=== PATIENT | female | born 1955 | race Caucasian/White ===

== ENCOUNTER 2018-04-26 14:55 | Inpatient (IN) | payer OTHER ==
[~2018-04-26] VITALS: Ht 167.6 cm; Wt 69.4 kg
[2018-04-26 15:00] VITALS: BP_SYST 101
--- NOTE | 2018-04-26 15:05 | NUR ---
Patient triaged and placed in waiting room. VSS and patient appears in no acute distress at this time. Accompanied by FAMILY, awaiting available bed, and MD notified of need for MSE.
--- NOTE | 2018-04-26 15:20 | NUR ---
DMV Report filed and faxed to [phone]. EXPLAINED TO DAUGHTER ABOUT REPORTING.
--- NOTE | 2018-04-26 15:54 | NUR ---
Placed in room 1. Placed on equipment monitor phototypesetting, blood pressure machine and pulse oximeter. To gown for exam. Side rails up. Report given to Kamille AMRION.
--- NOTE | 2018-04-26 16:05 | NUR ---
Pt AAOx4, moroccan speaking only, presents to ED c/o generalized weakness, 8/10 lower abdominal pain radiating to back x 3 days with 1 episode of vomiting yesterday. Pt also states she was on vacation recently and had several syncopal episodes. Skin pink dry and warm, breathing even and unlabored. No other injuries/complaints per pt/noted. Will continue to monitor.
--- NOTE | 2018-04-26 16:28 | NUR ---
ER Dr. Steven at bedside examining patient.
--- NOTE | 2018-04-26 16:34 | NUR ---
Pt ambulated to bathroom to provide urine sample with steady gait
--- NOTE | 2018-04-26 16:41 | NUR ---
PT TO RADIOLOGY AMBULATORY
[2018-04-26 16:45] LABS: BASOPHILS % (AUTO) 0.4 % (0.0-2.0); EOSINOPHILS % (AUTO) 0.5 % (0.0-4.0); HEMATOCRIT 32.5 % (36-48); LYMPHOCYTES # (AUTO) 0.8 K/uL (1.0-5.5); LYMPHOCYTES % (AUTO) 13.6 % (20.5-51.5); MEAN CORPUSCULAR HEMOGLOBIN 33 pg (27-31); MEAN CORPUSCULAR HGB CONC 34 % (32-36); MEAN CORPUSCULAR VOLUME 97 fL (79.0-98.0); MONOCYTES # (AUTO) 0.6 K/uL (0.0-1.0); MONOCYTES % (AUTO) 9.3 % (1.7-9.3); NEUTROPHILS # (AUTO) 4.5 K/uL (1.8-7.7); NEUTROPHILS % (AUTO) 76.2 % (40.0-70.0); PLATELET COUNT (AUTO) 206 K/uL (130-430); RED BLOOD CELL COUNT(AUTO) 3.36 MIL/uL (4.2-6.2); RED CELL DISTRIBUTION WIDTH 12.6 % (9.0-15.0); WHITE BLOOD COUNT (AUTO) 5.9 K/uL (4.8-10.8)
[2018-04-26 16:47] LABS: PROTHROMBIN TIME 10.4 SECS (9.5-12.5)
[2018-04-26 16:56] LABS: BILIRUBIN,URINE NEGATIVE (NEGATIVE); CLARITY/URINE SL CLOUDY (CLEAR); COLOR,URINE YELLOW (YELLOW); GLUCOSE,URINE 3+ (NEGATIVE); KETONES,URINE 1+ (NEGATIVE); LEUKOCYTE ESTERASE ,URINE 2+ (NEGATIVE); NITRITE, URINE NEGATIVE (NEGATIVE); PH,URINE 5.5 (5.0-8.0); PROTEIN URINE 1+ (NEGATIVE); UROBILINOGEN,URINE 0.2 (0.2-1.0)
[2018-04-26 16:57] LABS: BLOOD, URINE TRACE (NEGATIVE)
[2018-04-26 16:59] LABS: BACTERIA,URINE MODERATE /HPF (None Seen); WBC,URINE >100 /HPF (0-3)
[2018-04-26 17:00] LABS: MUCUS,URINE 2+ /LPF (None Seen)
[2018-04-26 17:04] LABS: BARBITURATE, URINE NEGATIVE (NEG <=200); BENZODIAZEPINE, URINE NEGATIVE (NEG <=150); CANNABINOID, URINE NEGATIVE (NEG <=50); COCAINE, URINE NEGATIVE (NEG <=150); METHAMPHETAMINES SCREEN,URINE NEGATIVE (NEG <=500); OPIATE, URINE NEGATIVE (NEG <=100); PHENCYCLIDINE SCREEN,URINE NEGATIVE (NEG <=25); UR TRICYCLIC ANTIDEPRESSANTS NEGATIVE (NEG <=300); URINE AMPHETAMINE NEGATIVE (NEG <=500); URINE METHADONE NEGATIVE (NEG <=200); URINE OXYCODONE SCREEN NEGATIVE (NEG <=100); URINE PROPOXYPHENE SCREEN NEGATIVE (NEG <=300)
[2018-04-26 17:08] LABS: ANION GAP 9 (5-15); ASPARTATE AMINOTRANSFERASE 13 U/L (10-37); CALCIUM 8.4 mg/dL (8.4-11.0); CHLORIDE 96 mmol/L (98-107); CREATININE 1.48 mg/dL (0.55-1.30); GFR AFRICAN AMERICAN 46 mL/min (>90); GLUCOSE 329 mg/dL (70-99); POTASSIUM 3.5 mmol/L (3.5-5.1); SODIUM SERUM 131 mmol/L (136-145); TOTAL BILIRUBIN 0.4 mg/dL (0.0-1.0); UREA NITROGEN, BLOOD 36 mg/dL (8-21)
[2018-04-26 17:09] LABS: ALANINE AMINOTRANSFERASE 20 U/L (12-78); ALBUMIN 2.8 g/dL (3.4-4.8); ALCOHOL, BLOOD < 3 mg/dL (<10); FREE T4 (FREE THYROXINE) 0.9 ng/dL (0.6-1.6)
[2018-04-26] MEDS ORDERED: cefTRIAXone 1 GM in D5W 50 ML IV ONE (18:15)
[2018-04-26] MEDS ORDERED: MORPHINE 4 MG/ML INJ. SYRINGE IVP ONE (18:15)
[2018-04-26] MEDS ORDERED: DIPHENHYDRAMINE INJ 50 MG/ML VIAL IVP ONE (18:15)
--- NOTE | 2018-04-26 18:25 | NUR ---
BP 88/60. Dr. Steven notified. Morphine and Benadryl held.
[2018-04-26] MEDS ORDERED: cefTRIAXone 1 GM IVPB PREMIX 50 ML IV ONE (18:30)
--- NOTE | 2018-04-26 18:34 | NUR ---
Pt moved to bed 06
--- NOTE | 2018-04-26 18:54 | NUR ---
Pt c/o 10/[address] Steven assessing pt at bedside. Orders to be received.
[2018-04-26] MEDS ORDERED: HYDROcodone/ACETAMIN 5-325 MG TAB (NORCO/ VICODIN) PO ONE (19:00)
--- NOTE | 2018-04-26 19:09 | NUR ---
ADMIT NOTE Received pt from ER to the floor with a diagnosis of syncope. Admission process initiated. patient oriented to pain management, safety and call light-teach back done.
--- NOTE | 2018-04-26 19:16 | NUR ---
Patient will be admitted to care of [facility]. Admitted to Telemetry unit. Will go to room 132C. Summary report printed. Report will be given at bedside.
[2018-04-26 19:18] VITALS: BP_SYST 105
--- NOTE | 2018-04-26 19:20 | NUR ---
ROUNDS PATIENT IN BED, AWAKE, ALERT, ORIENTED, NOT IN DISTRESS, VITALS STABLE. DENIES ANY PAIN AT THIS TIME. ADMISSION ASSESSMENT DONE AND DOCUMENTED. SEE FLOWSHEET. ORIENTED TO HER ROOM, PHONE, TV AND CALL LIGHT. PLAN OF CARE DISCUSSED AND PATIENT AND FAMILY VERBALIZED UNDERSTANDING. NEEDS ATTENDED TO. SAFETY AND FALL PRECAUTION MEASURES IN PLACED. BED IN LOW AND LOCKED POSITION. CALL LIGHT PLACED WITHIN REACH.
[2018-04-26] MEDS ORDERED: LORazepam 2 MG/ML VIAL IVP PRN (19:45)
[2018-04-26] MEDS ORDERED: ONDANSETRON HCL 4 MG/2 ML VIAL IVP PRN (19:45)
[2018-04-26] MEDS ORDERED: AMLO5TAB4 PO (21:29)
[2018-04-26] MEDS ORDERED: GLU850 PO (21:29)
[2018-04-26] MEDS ORDERED: BENA40TA65 PO (21:29)
[2018-04-26] MEDS ORDERED: ASPI-1155 PO (21:29)
[2018-04-26] MEDS ORDERED: SIMV20TA2 PO (21:29)
[2018-04-26] MEDS ORDERED: ALOG25TA2 PO (21:29)
[2018-04-26] MEDS ORDERED: GARL200T PO (21:29)
[2018-04-26] MEDS ORDERED: OXYB10TA4 PO (21:29)
[2018-04-26] MEDS ORDERED: CHOL500037 PO (21:29)
--- NOTE | 2018-04-26 22:14 | NUR ---
PATIENT RESTING: Patient resting quietly. No acute distress noted. Vital signs within normal range.
--- NOTE | 2018-04-26 22:40 | NUR ---
CONSULT REASON FOR CONSULT: SYNCOPE PERSON I SPOKE WITH: HUBER CONSULTING PHYSICIAN: Kitty LOGAN (DR. KIMBALL PET SITTER) BONDING MACHINE OPERATOR PHONE NUMBER: [phone] ORDERING PHYSICIAN: Latia LOGAN
--- NOTE | 2018-04-26 22:43 | NUR ---
CONSULT REASON FOR CONSULT: SYNCOPE PERSON I SPOKE WITH: MARTA CONSULTING PHYSICIAN: DR. EASLEY BRICKMASON APPRENTICE PHONE NUMBER: [phone] ORDERING PHYSICIAN: Latia LOGAN
[2018-04-26] MEDS: NORMAL SALINE 5 ML DISP.SYRIN IVF SCH (23:11)
[2018-04-27 00:05] VITALS: BP_SYST 81
--- NOTE | 2018-04-27 00:12 | NUR ---
ROUNDS PATIENT ASLEEP, NO SOB NOR PAIN AND DISCOMFORT NOTED, VITALS STABLE. WILL CONTINUE TO MONITOR.
[2018-04-27 01:58] VITALS: BP_SYST 128
[2018-04-27] MEDS: ACETAMINOPHEN 325 MG TABLET PO PRN (03:36)
--- NOTE | 2018-04-27 03:36 | NUR ---
PAIN PATIENT C/O MILD PAIN TO LEFT SHOULDERS, TYLENOL 650 MG PO GIVEN ORDERED PRN . WILL CONTINUE TO MONITOR.
[2018-04-27 06:35] LABS: CALCIUM 8.1 mg/dL (8.4-11.0); POTASSIUM 3.2 mmol/L (3.5-5.1)
[2018-04-27 06:49] LABS: PHOSPHORUS 2.2 mg/dL (2.7-4.5); THYROID STIMULATING HORMONE 1.19 uIu/mL (0.34-4.82)
[2018-04-27 06:55] LABS: BASOPHILS % (AUTO) 0.4 % (0.0-2.0); EOSINOPHILS % (AUTO) 0.3 % (0.0-4.0); HEMATOCRIT 29.5 % (36-48); HEMOGLOBIN 10.1 g/dL (12.0-16.0); LYMPHOCYTES # (AUTO) 0.4 K/uL (1.0-5.5); LYMPHOCYTES % (AUTO) 6.7 % (20.5-51.5); MEAN CORPUSCULAR HEMOGLOBIN 33 pg (27-31); MEAN CORPUSCULAR HGB CONC 34 % (32-36); MEAN CORPUSCULAR VOLUME 95 fL (79.0-98.0); MONOCYTES # (AUTO) 0.7 K/uL (0.0-1.0); MONOCYTES % (AUTO) 10.3 % (1.7-9.3); NEUTROPHILS # (AUTO) 5.2 K/uL (1.8-7.7); NEUTROPHILS % (AUTO) 82.3 % (40.0-70.0); PLATELET COUNT (AUTO) 187 K/uL (130-430); RED CELL DISTRIBUTION WIDTH 12.6 % (9.0-15.0); WHITE BLOOD COUNT (AUTO) 6.3 K/uL (4.8-10.8)
--- NOTE | 2018-04-27 07:30 | NUR ---
INITIAL NOTE RECEIVED PT IN BED, NO S/S OF DISTRESS OR SOB NOTED, PT HAS NO C/O PAIN AT THIS TIME, PT IN STABLE, PT AAOX4, VERBAL. IV CATHETER PATENT, NO SIGNS OF INFECTION OR INFILTRATION NOTED. SEIZURE PADS IN PLACE FOR SAFETY DUE TO DIAGNOSIS. PT HAS NO FACIAL DROOP NOTED, BILATERAL FIRE MARSHAL REFINERY STRONG 5/5, NO DEFICITS NOTED. BED AT LOWEST POSITION, CALL LIGHT WITHIN REACH, WILL CONTINUE TO MONITOR PT FOR ANY CHANGES, SAFETY PRECAUTIONS IN PLACE.
[2018-04-27 08:16] VITALS: BP_SYST 97
[2018-04-27] MEDS: HYDROcodone/ACETAMIN 5-325 MG TAB (NORCO/ VICODIN) PO PRN ×3 (09:57→20:21)
--- NOTE | 2018-04-27 10:05 | NUR ---
ROUNDS PT IN BED, NO S/S OF DISTRESS OR SOB NOTED, PT HAS NO C/O PAIN AT THIS TIME, PT IN STABLE CONDITION, WILL CONTINUE TO MONITOR PT FOR ANY CHANGES. Addendum: 04/27/18 at 1133 by Taylor Lockwood RN PT DID COMPLAIN OF PAIN, ADMINISTERED PRN NORCO PRESCRIBED, WILL CONTINUE TO MONITOR
--- NOTE | 2018-04-27 10:35 | NUR ---
PHYSICAL THERAPY PT AMBULATED WITH PHYSICAL THERAPY INSIDE THE ROOM ,PT TOLERATED.
--- NOTE | 2018-04-27 10:45 | NUR ---
MD ROUNDS DR SANGEETA GEORGE, AWARE OF PATIENT'S CONDITION.
--- NOTE | 2018-04-27 12:20 | NUR ---
ROUNDS/EEG PT IN BED, NO S/S OF DISTRESS OR SOB NOTED, PT HAS NO C/O PAIN AT THIS TIME, PT IN STABLE CONDITION, WILL CONTINUE TO MONITOR PT FOR ANY CHANGES. PT HAVING AN EGG DONE AT THIS TIME.
--- NOTE | 2018-04-27 12:53 | NUR ---
P.T. NOTES P.T. MARQUITA COMPLETED; NURSING TO [facility]BU AD JOSE Addendum: 04/27/18 at 1254 by Rhoda Branham PT Amended: Links added.
[2018-04-27] MEDS: NORMAL SALINE 5 ML DISP.SYRIN IVF SCH ×2 (13:20→23:07)
[2018-04-27 13:27] VITALS: BP_SYST 102
--- NOTE | 2018-04-27 13:33 | NUR ---
ROUNDS DR REHANA GEORGE, AWARE OF PATIENTS CONDITION.
--- NOTE | 2018-04-27 14:10 | NUR ---
ROUNDS/EEG PT IN BED, NO S/S OF DISTRESS OR SOB NOTED, PT HAS NO C/O PAIN AT THIS TIME, PT IN STABLE CONDITION, WILL CONTINUE TO MONITOR PT FOR ANY CHANGES.
[2018-04-27] MEDS ORDERED: ASPIRIN 81 MG TAB.CHEW PO ONE (14:15)
[2018-04-27] MEDS ORDERED: OXYBUTYNIN CHLORIDE 5 MG TABLET PO ONE (14:15)
--- NOTE | 2018-04-27 14:30 | NUR ---
MD ROUNDS DR HAN ROUNDING, AWARE OF PATIENT'S CONDITION, NEW ORDERS GIVEN.
[2018-04-27] MEDS ORDERED: INSULIN REGULAR, HUMAN 100 UNITS/ML, 10 ML VIAL SUBCUT ONE (14:45)
--- NOTE | 2018-04-27 14:46 | NUR ---
BLOOD GLUCOSE PATIENT'S BLOOD GLUCOSE WAS 405 AND WHEN RECHECKED 415, ROUNDING AND MADE AWARE AND GAVE NEW ORDERS FOR 12 UNITS OF REGULAR INSULIN SQ TIMES ONE NOW AND TO CHECK HER SUGAR AT 1700. PT ASYMPTOMATIC, NO S/S OF HYPERGLYCEMIA NOTED.
[2018-04-27] MEDS: LEVOFLOXACIN 500 MG/D5W 100 ML IV SCH (14:50)
--- NOTE | 2018-04-27 15:01 | NUR ---
CONSULT ID SEPSIS DR CINTRON [id number] S/W MARTA BELLE
--- NOTE | 2018-04-27 15:24 | NUR ---
IV RE-INSERTION: IV on right ac occluded, removed iv, catheter intact. Restarted on right foreram, 22 gauge. Successful after one attempt. Will observe for any signs of infiltration. Aseptic technique used.
[2018-04-27 16:20] VITALS: BP_SYST 110
[2018-04-27] MEDS: INSULIN REGULAR, HUMAN 100 UNITS/ML, 10 ML VIAL (novoLIN R) SUBCUT PRN (17:34)
--- NOTE | 2018-04-27 18:17 | NUR ---
CLOSING NOTE PT IN BED, NO S/S OF DISTRESS OR SOB NOTED, PT HAS NO C/O PAIN AT THIS TIME, PT IN STABLE, PT AAOX4, VERBAL. IV CATHETER PATENT, NO SIGNS OF INFECTION OR INFILTRATION NOTED. PT HAS NO FACIAL DROOP NOTED, BILATERAL SKIDWAY MAN STRONG 5/5, NO DEFICITS NOTED. NO HEADACHE OR DIZZINESS. BED AT LOWEST POSITION, CALL LIGHT WITHIN REACH, WILL ENDORSE CARE OF PT TO INCOMING NURSE, SAFETY PRECAUTIONS IN PLACE.
--- NOTE | 2018-04-27 19:40 | NUR ---
ROUNDS PATIENT RESTING COMFORTABLY IN BED, NOT IN DISTRESS, VITALS STABLE. DENIES ANY PAIN AND DISCOMFORT AT THIS TIME. ASSESSMENT DONE AND DOCUMENTED. SEE FLOWSHEET. NEEDS ATTENDED TO. SAFETY AND FALL PRECAUTION MEASURES IN PLACED. BED IN LOW AND LOCKED POSITION. CALL LIGHT PLACED WITHIN REACH.
[2018-04-27 20:00] VITALS: BP_SYST 98
[2018-04-27] MEDS: SIMVASTATIN 20 MG TABLET PO SCH (20:21)
[2018-04-27] MEDS: OXYBUTYNIN CHLORIDE 5 MG TABLET PO SCH (20:22)
--- NOTE | 2018-04-27 21:13 | NUR ---
MEDICATIONS DUE MEDICATIONS GIVEN SCHEDULED, TOLERATED WELL. WILL CONTINUE TO MONITOR.
--- NOTE | 2018-04-28 00:23 | NUR ---
PATIENT RESTING: Patient resting quietly. No acute distress noted. Vital signs within normal range.
--- NOTE | 2018-04-28 02:12 | NUR ---
ROUNDS PATIENT ASLEEP, NOT IN DISTRESS, VITALS STABLE. WILL CONTINUE TO MONITOR.
--- NOTE | 2018-04-28 04:07 | NUR ---
ROUNDS PATIENT ASLEEP, RESPIRATIONS EVEN AND UNLABORED, VITALS STABLE. WILL CONTINUE TO MONITOR.
[2018-04-28] MEDS: ACETAMINOPHEN 325 MG TABLET PO PRN (04:23)
[2018-04-28] MEDS: INSULIN REGULAR, HUMAN 100 UNITS/ML, 10 ML VIAL (novoLIN R) SUBCUT PRN ×2 (05:33→11:41)
[2018-04-28] MEDS: NORMAL SALINE 5 ML DISP.SYRIN IVF SCH ×3 (05:33→21:51)
[2018-04-28 06:22] LABS: BASOPHILS % (AUTO) 0.4 % (0.0-2.0); EOSINOPHILS % (AUTO) 0.7 % (0.0-4.0); HEMOGLOBIN 10.2 g/dL (12.0-16.0); LYMPHOCYTES # (AUTO) 0.8 K/uL (1.0-5.5); LYMPHOCYTES % (AUTO) 12.2 % (20.5-51.5); MEAN CORPUSCULAR HEMOGLOBIN 33 pg (27-31); MEAN CORPUSCULAR HGB CONC 34 % (32-36); MEAN CORPUSCULAR VOLUME 96 fL (79.0-98.0); MONOCYTES # (AUTO) 0.7 K/uL (0.0-1.0); MONOCYTES % (AUTO) 11.2 % (1.7-9.3); NEUTROPHILS # (AUTO) 4.9 K/uL (1.8-7.7); NEUTROPHILS % (AUTO) 75.5 % (40.0-70.0); PLATELET COUNT (AUTO) 219 K/uL (130-430); RED BLOOD CELL COUNT(AUTO) 3.11 MIL/uL (4.2-6.2); RED CELL DISTRIBUTION WIDTH 12.4 % (9.0-15.0); WHITE BLOOD COUNT (AUTO) 6.4 K/uL (4.8-10.8)
[2018-04-28 06:27] LABS: ALBUMIN 2.2 g/dL (3.4-4.8); CALCIUM 8.2 mg/dL (8.4-11.0); CREATININE 0.9 mg/dL (0.55-1.30); POTASSIUM 3.4 mmol/L (3.5-5.1); TOTAL BILIRUBIN 0.4 mg/dL (0.0-1.0)
--- NOTE | 2018-04-28 06:43 | NUR ---
CLOSING NOTES PATIENT AWAKE, VITALS STABLE, DENIES ANY PAIN AT THIS TIME. ALL NEEDS ATTENDED TO. SAFETY AND FALL PRECAUTION MEASURES MAINTAINED. CALL LIGHT PLACED WITHIN REACH.
[2018-04-28 07:15] LABS: C-REACTIVE PROTEIN QUANT 20.6 mg/dL (0-0.5)
[2018-04-28 07:37] LABS: ERYTHROCYTE SEDIMENTATION RATE 104 MM/HR (0-20)
--- NOTE | 2018-04-28 07:55 | NUR ---
INITIAL NOTE RECEIVED PT IN BED, NO S/S OF DISTRESS OR SOB NOTED, PT HAS NO C/O PAIN AT THIS TIME, PT IN STABLE, PT AAOX4, VERBAL. IV CATHETER PATENT, NO SIGNS OF INFECTION OR INFILTRATION NOTED. SEIZURE PADS IN PLACE FOR SAFETY DUE TO DIAGNOSIS. PT HAS NO FACIAL DROOP NOTED, BILATERAL MAILING JOGGER STRONG 5/5, NO DEFICITS NOTED. BED AT LOWEST POSITION, CALL LIGHT WITHIN REACH, WILL CONTINUE TO MONITOR PT FOR ANY CHANGES, SAFETY PRECAUTIONS IN PLACE.
[2018-04-28] MEDS: ASPIRIN 81 MG TAB.CHEW PO SCH (08:07)
[2018-04-28] MEDS: OXYBUTYNIN CHLORIDE 5 MG TABLET PO SCH ×2 (08:08→21:37)
[2018-04-28 08:40] VITALS: BP_SYST 100
[2018-04-28] MEDS: HYDROcodone/ACETAMIN 5-325 MG TAB (NORCO/ VICODIN) PO PRN ×2 (10:22→17:24)
--- NOTE | 2018-04-28 10:45 | NUR ---
ROUNDS PT IN BED, NO S/S OF DISTRESS OR SOB NOTED, PT HAS NO C/O PAIN AT THIS TIME, PT IN STABLE CONDITION, WILL CONTINUE TO MONITOR PT FOR ANY CHANGES. PT TALKING TO FAMILY AT BEDSIDE.
[2018-04-28] MEDS: NACL 0.9% 1,000 ML IV SCH ×2 (11:45→21:50)
--- NOTE | 2018-04-28 12:18 | NUR ---
MD ROUNDS DR LAURA GEORGE, AWARE OF PATIENT'S CONDITION, NEW ORDERS GIVEN.
[2018-04-28 12:20] VITALS: BP_SYST 103
--- NOTE | 2018-04-28 12:38 | NUR ---
Dietitian Recommendations *Recommend [facility] Card[facility] diet per MD orders. *Encourage pt to increase PO intake. Please see Nutritional Assessment for details. JAYANT, LAUREN
[2018-04-28] MEDS: GENTAMICIN SULFATE 400 MG in NS 100 ML IV SCH (13:22)
[2018-04-28] MEDS: LEVOFLOXACIN 500 MG/D5W 100 ML IV SCH (14:48)
[2018-04-28 16:55] VITALS: BP_SYST 98
--- NOTE | 2018-04-28 16:56 | NUR ---
MD ROUNDS DR ANDRAE GEORGE, AWARE OF PATIENT'S CONDITION, NEW ORDERS GIVEN.
[2018-04-28] MEDS: INSULIN ASPART 100 UNITS/ML, 10 ML VIAL (NovoLOG) SUBCUT PRN ×2 (17:28→21:42)
[2018-04-28] MEDS: metFORMIN HCL 500 MG TABLET PO SCH (17:44)
--- NOTE | 2018-04-28 18:24 | NUR ---
CLOSING NOTE PT IN BED, NO S/S OF DISTRESS OR SOB NOTED, PT HAS NO C/O PAIN AT THIS TIME, PT IN STABLE, PT AAOX4, VERBAL. IV CATHETER PATENT, NO SIGNS OF INFECTION OR INFILTRATION NOTED. PT HAS NO FACIAL DROOP NOTED, BILATERAL SALES AND MERCHANDISING ASSOCIATE STRONG 5/5, NO DEFICITS NOTED. NO HEADACHE OR DIZZINESS. BED AT LOWEST POSITION, CALL LIGHT WITHIN REACH, WILL ENDORSE CARE OF PT TO INCOMING NURSE, SAFETY PRECAUTIONS IN PLACE. FAMILY AT BEDSIDE.
--- NOTE | 2018-04-28 19:21 | NUR ---
MD ROUNDS Kitty BUNCH. ROUNDING AWARE OF PATIENT'S CONDITION, NEW ORDERS GIVEN FOR CONSTIPATION.
[2018-04-28] MEDS ORDERED: NA PHOS,M-B/NA PHOS,DI-BA 118 ML (FLEET ENEMA) RC ONE (19:30)
--- NOTE | 2018-04-28 19:30 | NUR ---
OPENING NOTE Received report from Taylor. Patient resting in bed awake, alert, oriented x4. Family at the bedside. Breathing unlabored and even on room air. No signs of distress, no needs at this time. Fall and safety precautions in place. Bed in lowest position, brake on, alarm on, call light within reach. IVF infusing as ordered. Will continue to monitor.
[2018-04-28 20:00] VITALS: BP_SYST 103
[2018-04-28] MEDS: SIMVASTATIN 20 MG TABLET PO SCH (21:37)
[2018-04-28] MEDS: DOCUSATE SODIUM 250 MG CAPSULE PO SCH (21:37)
[2018-04-28] MEDS: HYDROcodone/ACETAMIN 10-325 MG TAB PO PRN (21:50)
--- NOTE | 2018-04-28 21:54 | NUR ---
Med pass. IVF hung. Patient refused one time administration on fleet enema, despite teaching.
--- NOTE | 2018-04-28 21:55 | NUR ---
Blood sugar 140. No insulin coverage needed.
--- NOTE | 2018-04-28 22:00 | NUR ---
Patient c/o pain. Administered PRN norco 10-325 PO as ordered. Educated patient on safety and side effects. Encouraged call for assist.
--- NOTE | 2018-04-28 23:49 | NUR ---
Patient resting in bed with eyes closed. Breathing unlabored and even on room air. No signs of distress, no needs at this time. Jazz and safety precautions in place. Bed in lowest position, brake on, alarm on, call light within reach. IVF infusing as ordered. Son at the bedside. Will continue to monitor.
[2018-04-29] VITALS: BP_SYST 110
--- NOTE | 2018-04-29 02:00 | NUR ---
Patient resting in bed with eyes closed. Son at the bedside. Breathing unlabored and even on room air. No signs of distress, no needs at this time. Fall and safety precautions in place. Bed in lowest position, brake on, alarm on, call light within reach. IVF infusing as ordered. Will continue to monitor.
[2018-04-29 06:00] VITALS: BP_SYST 102; BP_SYST 107; BP_SYST 116
--- NOTE | 2018-04-29 06:00 | NUR ---
Orthostatic blood pressures taken: Laying down: 102/58 Sitting up: 116/72 Standing up: 107/70 Patient tolerated well.
[2018-04-29] MEDS: INSULIN ASPART 100 UNITS/ML, 10 ML VIAL (NovoLOG) SUBCUT PRN ×3 (06:03→21:32)
[2018-04-29] MEDS: NORMAL SALINE 5 ML DISP.SYRIN IVF SCH ×3 (06:04→21:32)
--- NOTE | 2018-04-29 06:06 | NUR ---
Med pass. Blood sugar 228. Administered 4 units of insulin per PRN insulin sliding scale. Held Glipizide since breakfast has not been served yet. Will endorse to day shift nurse to administer.
[2018-04-29] MEDS: NACL 0.9% 1,000 ML IV SCH ×2 (06:59→18:34)
--- NOTE | 2018-04-29 07:00 | NUR ---
New IVF hung
[2018-04-29 07:02] LABS: CREATININE 0.76 mg/dL (0.55-1.30); POTASSIUM 3.6 mmol/L (3.5-5.1)
--- NOTE | 2018-04-29 07:11 | NUR ---
CLOSING NOTE Gave report to day shit nurse. Patient resting in bed with eyes closed. Breathing unlabored and even on room air. No signs of distress, no needs at this time. Fall and safety precautions in place. Bed in lowest position, brake on, alarm on, call light within reach. IVF infusing as ordered. Will endorse cares to day shift nurse.
[2018-04-29 07:13] LABS: BASOPHILS # (AUTO) 0.1 K/uL (0.0-0.2); BASOPHILS % (AUTO) 1.1 % (0.0-2.0); EOSINOPHILS # (AUTO) 0.1 K/uL (0.0-0.4); EOSINOPHILS % (AUTO) 1.5 % (0.0-4.0); HEMATOCRIT 30.2 % (36-48); HEMOGLOBIN 10.3 g/dL (12.0-16.0); LYMPHOCYTES # (AUTO) 1.1 K/uL (1.0-5.5); LYMPHOCYTES % (AUTO) 16.9 % (20.5-51.5); MEAN CORPUSCULAR HEMOGLOBIN 33 pg (27-31); MEAN CORPUSCULAR HGB CONC 34 % (32-36); MEAN CORPUSCULAR VOLUME 97 fL (79.0-98.0); MONOCYTES # (AUTO) 0.8 K/uL (0.0-1.0); MONOCYTES % (AUTO) 11.9 % (1.7-9.3); NEUTROPHILS # (AUTO) 4.4 K/uL (1.8-7.7); NEUTROPHILS % (AUTO) 68.6 % (40.0-70.0); PLATELET COUNT (AUTO) 269 K/uL (130-430); RED BLOOD CELL COUNT(AUTO) 3.13 MIL/uL (4.2-6.2); RED CELL DISTRIBUTION WIDTH 12.8 % (9.0-15.0); WHITE BLOOD COUNT (AUTO) 6.5 K/uL (4.8-10.8)
--- NOTE | 2018-04-29 07:25 | NUR ---
Opening Note patient resting in bed, eyes closed, breathing unlabored on room air, positioned to her side, no signs of distress, symmetrical chest expansion, safety precautions remain in place, bedside table and call light within reach, will continue to monitor patient
[2018-04-29 07:47] LABS: C-REACTIVE PROTEIN QUANT 14.7 mg/dL (0-0.5)
[2018-04-29] MEDS: metFORMIN HCL 500 MG TABLET PO SCH ×2 (08:51→17:22)
[2018-04-29] MEDS: ASPIRIN 81 MG TAB.CHEW PO SCH (08:51)
[2018-04-29] MEDS: DOCUSATE SODIUM 250 MG CAPSULE PO SCH ×2 (08:51→21:28)
[2018-04-29] MEDS: OXYBUTYNIN CHLORIDE 5 MG TABLET PO SCH ×2 (08:51→21:28)
--- NOTE | 2018-04-29 08:55 | NUR ---
Medication Administration educated patient regarding meds, verbalized understanding, tolerated well by mouth, son at bedside, denies pain at this time, educated patient on use of call light for assistance, verbalized understanding, safety precautions remain in place, bedside table and call light within reach, will continue to monitor patient
[2018-04-29 09:00] VITALS: BP_SYST 110
[2018-04-29 09:29] LABS: ERYTHROCYTE SEDIMENTATION RATE 102 MM/HR (0-20)
[2018-04-29] MEDS: HYDROcodone/ACETAMIN 5-325 MG TAB (NORCO/ VICODIN) PO PRN (11:10)
--- NOTE | 2018-04-29 11:13 | NUR ---
Pain Meds/Glucose insulin provided per sliding scale and pain med provided per PRN, educated patient regarding meds. verbalized understanding, tolerated well, she is sitting on a chair at bedside, educated patient and family regarding use of call light for assistance, verbalized understanding, call light and bedside table left within reach, will continue to monitor patient
--- NOTE | 2018-04-29 12:17 | NUR ---
Paged Dr. Brantley to Report Critical Labs at this time, will await call back
[2018-04-29 12:26] VITALS: BP_SYST 108
--- NOTE | 2018-04-29 12:50 | NUR ---
Dr. Middleton Rounds/Informed him of Blood Culture MD verbalized understanding, stated will await Dr. Brantley's orders
--- NOTE | 2018-04-29 13:40 | NUR ---
Paged Dr. Brantley (Second Time) to inform about critical urine and blood culture, awaiting MD to call back
[2018-04-29] MEDS: GENTAMICIN SULFATE 400 MG in NS 100 ML IV SCH (14:42)
--- NOTE | 2018-04-29 14:58 | NUR ---
Antibiotics/Case Management at Bedside discussing transfer plans for patient, son at bedside, educated patient and family on meds, verbalized understanding, IV site remains patent, no other needs at this time, educated patient on use of call light for assistance, verbalized understanding, safety precautions remain in place, bedside table and call light within reach, will continue to monitor patient
--- NOTE | 2018-04-29 15:02 | NUR ---
DC PLANNING Order for dc planning for SNF. Called & spoke nicol Calvert @ [facility] [phone], states that [facility] responsible for SNF, IE ph [phone]. Called [facility] & got transferred several times, spoke nicol López & got disconnected. Have list of IE snf's in office. Spoke nicol pt & son Sanchez Foreman @ bedside, aware need short term snf for IV abx & agreeable. Prefers [facility] Maritza christy LCSW called [facility] & do not take IE insurance. Gave list of contracted SNF's ok to send to [facility], [facility], & [facility].
--- NOTE | 2018-04-29 15:04 | NUR ---
Paged Dr. Brantley (third time) to report critical blood and urine culture, will await call back
[2018-04-29] MEDS: LEVOFLOXACIN 500 MG/D5W 100 ML IV SCH (15:30)
[2018-04-29] MEDS: HYDROcodone/ACETAMIN 10-325 MG TAB PO PRN (15:40)
--- NOTE | 2018-04-29 15:42 | NUR ---
Pain Meds given at this time per protocol, educated patient and family regarding meds, verbalized understanding, tolerated well by mouth, family at bedside, educated patient and family regarding use of call light for assistance, verbalized understanding, call light and bedside table left within reach, will continue to monitor patient
--- NOTE | 2018-04-29 15:44 | NUR ---
Discharge Planning GROVE WORKER assisting Jennifer RODRIGUEZ with DC planning to SNF [facility] does not accept patient's insurance, IE. [facility]: they have no beds available and do not expect any isolation beds to come available. [facility]: p [phone] f [phone]. Sai requested to fax information. Faxed. [facility]: p [phone] f [phone]. Admission coordinator out of office. Production Repairer covering and asked info to be faxed. Faxed patient's information. [facility]: [phone] f [phone]. This SNF also listed as contracted with [facility]. Faxed information for back up. Will continue to follow. Addendum: 04/29/18 at 1633 by Maritza Ott LCSW As per Jennifer RODRIGUEZ LCSW faxed patient's information to [facility] p [phone] f [phone]
--- NOTE | 2018-04-29 16:15 | NUR ---
Patient Ambulating with Son steady gait with minimal assistance, educated on safety precautions, verbalized understanding, will continue to monitor
--- NOTE | 2018-04-29 16:20 | NUR ---
DC PLANNING Received call from Ruby @ [facility], no iso beds avail, none for tomorrow. States to try [facility] they are also [facility] contracted.
[2018-04-29 16:50] VITALS: BP_SYST 116; BP_SYST 117
--- NOTE | 2018-04-29 17:25 | NUR ---
Blood Sugar Assessed no insulin coverage needed per sliding scale, educated patient and family regarding meds, verbalized understanding, tolerated well, IV site remains patent, no other needs at this time, educated patient and family on use of call light for assistance, verbalized understanding, safety precautions remain in place, will continue to monitor
[2018-04-29] MEDS: ERTAPENEM SODIUM 1 GM in NS 50 ML IV SCH (18:36)
--- NOTE | 2018-04-29 19:00 | NUR ---
OPENING NOTE Received report from Criselda. Patient resting in bed awake, alert, oriented x4. Family at the bedside. Breathing unlabored and even on room air. No signs of distress, no needs at this time. Fall, safety, contact precautions in place. Bed in lowest position, brake on, call light within reach . IVF infusing as ordered. Will continue to monitor.
--- NOTE | 2018-04-29 19:20 | NUR ---
Closing Note patient resting in bed, awake and alert, family at bedside, IV site remains patent, spoke to family about plan of care with shift manager nurse, educated patient and family on use of call light for assistance, verbalized understanding, safety precautions remain in place, endorsed to shift manager nurse
[2018-04-29 20:00] VITALS: BP_SYST 153
[2018-04-29] MEDS: MORPHINE 4 MG/ML INJ. SYRINGE IVP PRN (20:00)
--- NOTE | 2018-04-29 20:00 | NUR ---
Patient vomited. Administered PRN zofran IVP as ordered. Patient c/o pain unrelieved by norco PO. Administered PRN morphine IVP as ordered. Educated patient and family on safety and side effects. Encouraged call for assist.
[2018-04-29] MEDS: SIMVASTATIN 20 MG TABLET PO SCH (21:28)
--- NOTE | 2018-04-29 21:33 | NUR ---
Med pass. Blood sugar 87. No insulin coverage needed at this time.
--- NOTE | 2018-04-29 23:14 | NUR ---
Patient resting in bed awake, alert, oriented x4. Son at the bedside. Breathing unlabored and even on room air. No signs of distress, no needs at this time. Fall, safety, contact precautions in place. Bed in lowest position, brake on, call light within reach . IVF infusing as ordered. Will continue to monitor.
[2018-04-30] VITALS (8 sets, daily range): BP systolic 111–138
--- NOTE | 2018-04-30 01:00 | NUR ---
Patient resting in bed with eyes closed. Son at the bedside. Breathing unlabored and even on room air. No signs of distress, no needs at this time. Fall, safety, contact precautions in place. Bed in lowest position, brake on, call light within reach . IVF infusing as ordered. Will continue to monitor.
[2018-04-30] MEDS: MORPHINE 4 MG/ML INJ. SYRINGE IVP PRN ×2 (05:16→22:10)
[2018-04-30] MEDS: NORMAL SALINE 5 ML DISP.SYRIN IVF SCH ×3 (05:16→21:52)
[2018-04-30] MEDS: NACL 0.9% 1,000 ML IV SCH ×2 (05:16→12:00)
--- NOTE | 2018-04-30 05:20 | NUR ---
Orthostatic BPs taken and charted
--- NOTE | 2018-04-30 05:28 | NUR ---
Pt c/o pain. Administered PRN morphine IVP as ordered.
--- NOTE | 2018-04-30 05:29 | NUR ---
New IVF hung
[2018-04-30] MEDS: INSULIN ASPART 100 UNITS/ML, 10 ML VIAL (NovoLOG) SUBCUT PRN ×2 (06:23→20:47)
--- NOTE | 2018-04-30 06:24 | NUR ---
Blood sugar 130. No insulin coverage needed at this time.
[2018-04-30 06:30] LABS: BASOPHILS % (AUTO) 0.7 % (0.0-2.0); EOSINOPHILS # (AUTO) 0.1 K/uL (0.0-0.4); EOSINOPHILS % (AUTO) 2.1 % (0.0-4.0); HEMOGLOBIN 9.3 g/dL (12.0-16.0); LYMPHOCYTES # (AUTO) 1.3 K/uL (1.0-5.5); LYMPHOCYTES % (AUTO) 21.6 % (20.5-51.5); MEAN CORPUSCULAR HEMOGLOBIN 32 pg (27-31); MEAN CORPUSCULAR HGB CONC 33 % (32-36); MEAN CORPUSCULAR VOLUME 96 fL (79.0-98.0); MONOCYTES # (AUTO) 0.7 K/uL (0.0-1.0); MONOCYTES % (AUTO) 11.3 % (1.7-9.3); NEUTROPHILS # (AUTO) 3.8 K/uL (1.8-7.7); NEUTROPHILS % (AUTO) 64.3 % (40.0-70.0); PLATELET COUNT (AUTO) 281 K/uL (130-430); RED BLOOD CELL COUNT(AUTO) 2.92 MIL/uL (4.2-6.2); RED CELL DISTRIBUTION WIDTH 12.8 % (9.0-15.0); WHITE BLOOD COUNT (AUTO) 5.9 K/uL (4.8-10.8)
--- NOTE | 2018-04-30 06:30 | NUR ---
Assisted patient to the bathroom. Voided x1.
[2018-04-30 06:45] LABS: C-REACTIVE PROTEIN QUANT 9.8 mg/dL (0-0.5); CREATININE 0.65 mg/dL (0.55-1.30); POTASSIUM 3.4 mmol/L (3.5-5.1)
--- NOTE | 2018-04-30 06:54 | NUR ---
CLOSING NOTE Endorsing cares to day shift nurse. Patient resting in bed awake, alert, oriented x4. Breathing unlabored and even on room air. No signs of distress, no needs at this time. Fall, safety, contact precautions in place. Bed in lowest position, brake on, call light within reach . IVF infusing as ordered.
--- NOTE | 2018-04-30 07:20 | NUR ---
Opening Note patient resting in bed, eyes closed, positioned to her side, breathing unlabored and symmetrical, IV site patent, safety precautions remain in place, bedside table and call light within reach, will continue to monitor
[2018-04-30] MEDS: OXYBUTYNIN CHLORIDE 5 MG TABLET PO SCH ×2 (08:19→20:43)
[2018-04-30] MEDS: DOCUSATE SODIUM 250 MG CAPSULE PO SCH ×2 (08:21→20:43)
[2018-04-30] MEDS: ASPIRIN 81 MG TAB.CHEW PO SCH (08:21)
[2018-04-30] MEDS: metFORMIN HCL 500 MG TABLET PO SCH ×2 (08:21→17:05)
--- NOTE | 2018-04-30 08:25 | NUR ---
Medication Administration educated patient regarding meds, verbalized understanding, tolerated well by mouth, stated she has 0/10 pain at the moment, she is sitting on bed, legs dangling off bed eating breakfast, no other needs at this time, educated patient on use of call light for assistance, verbalized understanding, call light and bedside table left within reach, will continue to monitor
[2018-04-30] MEDS ORDERED: POTASSIUM CHLORIDE 20 MEQ TAB.PRT.SR PO ONE (09:45)
[2018-04-30] MEDS ORDERED: PSYLLIUM HUSK 1 PKT PACKET PO ONE (09:45)
--- NOTE | 2018-04-30 09:47 | NUR ---
Spoke with Dr. Middleton/DC planning informed MD about patient's family concerns about transfer to SNF, informed him about Dr. Brantley's notes for possible DC home with PO meds, MD verbalized understanding, stated to cancel transfer plans and possible DC home tomorrow with PO meds, also informed about patient's inability to have BM and low potassium, placed new orders
[2018-04-30 10:09] LABS: ERYTHROCYTE SEDIMENTATION RATE 111 MM/HR (0-20)
--- NOTE | 2018-04-30 10:47 | NUR ---
Linda Brantley to ask about antibiotics and if patient can be discharged home with PO antibiotics per his note, will await call back Addendum: 04/30/18 at 1051 by Criselda Michaud RN MD called back, stated that patient can go home with PO antibiotics possibly tomorrow if MD wants to discharge. Informed Alejandra case management, verbalized understanding, will await for Dr. Middleton to make rounds
--- NOTE | 2018-04-30 11:25 | NUR ---
Blood Sugar assessed, no insulin coverage needed per sliding scale, family remains at bedside, patient denies pain, educated patient on use of call light for assistance, verbalized understanding, call light and bedside table left within reach, will continue to monitor patient
--- NOTE | 2018-04-30 13:50 | NUR ---
Patient resting in bed eyes closed, family remains at bedside, no sob, no complaints of pain, educated patient and family on use of call light for assistance, verbalized understanding, call light and bedside table left within reach, will continue to monitor patient
[2018-04-30] MEDS ORDERED: NORMAL SALINE 5 ML DISP.SYRIN IVF SCH (14:00)
[2018-04-30] MEDS: PSYLLIUM HUSK 1 PKT PACKET PO SCH ×2 (14:29→20:43)
--- NOTE | 2018-04-30 14:30 | NUR ---
Laxative given at this time. educated patient and family regarding med, verbalized understanding, no other needs at this time, no complaints of pain, educated patient and family on use of call light for assistance, verbalized understanding, call light and bedside table left within reach, will continue to monitor
--- NOTE | 2018-04-30 14:33 | NUR ---
Renal Ultrasound at bedside at this time, will continue to monitor
[2018-04-30] MEDS: ERTAPENEM SODIUM 1 GM in NS 50 ML IV SCH (17:05)
--- NOTE | 2018-04-30 17:20 | NUR ---
Blood Sugar Assessed no insulin needed per siding scale, patient resting in bed, awake and alert, denies pain, son at bedside, educated patient on use of call light for assistance, verbalized understanding, call light and bedside table left within reach, will continue to monitor patient
--- NOTE | 2018-04-30 18:53 | NUR ---
Closing Note patient sitting on chair at bedside, no pain, no SOB, breathing unlabored on room air, no other needs at this time, educated patient on use of call light for assistance, verbalized understanding, call light and bedside table left within reach, will endorse to security shift supervisor nurse
--- NOTE | 2018-04-30 20:00 | NUR ---
Opening Notes Received patient resting in bed, awake, alert, oriented, family at bedside. Patient is mainly Azerbaijani speaking, family is able to translate. Patient denies any acute distress or pain at this time. Breathing is even and unlabored. Vital signs stable. IV site patent/clean/dry. Needs addressed. Educated patient regarding use of call light for assistance and fall precautions, patient verbalized understanding. Call light in hand, fall precautions in place, will continue to monitor.
[2018-04-30] MEDS: SIMVASTATIN 20 MG TABLET PO SCH (20:43)
--- NOTE | 2018-04-30 22:15 | NUR ---
Nursing Notes Patient resting in bed with eyes closed, easily aroused. Patient's son is at bedside, states he will stay with patient overnight. Patient denies any acute distress at this time. Medicated patient for pain per MD order. Breathing is even and unlabored. IV site patent/clean/dry. Needs addressed. Call light in hand, fall precautions in place.
--- NOTE | 2018-05-01 | NUR ---
Nursing Notes Patient resting in bed with eyes closed, easily aroused, family at bedside. Patient denies any acute distress, pain, or needs at this time. Call light in hand, fall precautions in place. Will continue to monitor.
[2018-05-01 00:25] VITALS: BP_SYST 113
--- NOTE | 2018-05-01 02:00 | NUR ---
Nursing Notes Patient resting in bed with eyes closed, family at bedside. No acute distress noted, breathing is even and unlabored. Call light in hand, fall precautions in place. Will continue to monitor.
--- NOTE | 2018-05-01 04:00 | NUR ---
Nursing Notes Patient remains resting in bed with eyes closed, family at bedside. No distress or pain noted. Breathing is even and unlabored. Fall precautions in place, will continue to monitor for changes and safety.
[2018-05-01] MEDS: NORMAL SALINE 5 ML DISP.SYRIN IVF SCH ×3 (06:11→21:08)
[2018-05-01] MEDS: INSULIN ASPART 100 UNITS/ML, 10 ML VIAL (NovoLOG) SUBCUT PRN ×2 (06:11→21:06)
--- NOTE | 2018-05-01 06:41 | NUR ---
Closing Notes Patient resting in bed with eyes closed, easily aroused. Patient denies any acute distress or pain at this time. Breathing is even and unlabored. IV site patent/clean/dry, no S/S infection/infiltration noted. Needs addressed throughout shift. Call light in hand, fall precautions in place. will continue to monitor for changes and safety, and endorse all patient care/needs to oncoming nurse.
[2018-05-01 07:44] LABS: BASOPHILS % (AUTO) 0.8 % (0.0-2.0); EOSINOPHILS # (AUTO) 0.2 K/uL (0.0-0.4); EOSINOPHILS % (AUTO) 3.8 % (0.0-4.0); HEMATOCRIT 29.1 % (36-48); HEMOGLOBIN 9.6 g/dL (12.0-16.0); LYMPHOCYTES # (AUTO) 1.3 K/uL (1.0-5.5); LYMPHOCYTES % (AUTO) 23.5 % (20.5-51.5); MEAN CORPUSCULAR HEMOGLOBIN 32 pg (27-31); MEAN CORPUSCULAR HGB CONC 33 % (32-36); MEAN CORPUSCULAR VOLUME 96 fL (79.0-98.0); MONOCYTES # (AUTO) 0.5 K/uL (0.0-1.0); MONOCYTES % (AUTO) 9.3 % (1.7-9.3); NEUTROPHILS # (AUTO) 3.5 K/uL (1.8-7.7); NEUTROPHILS % (AUTO) 62.6 % (40.0-70.0); PLATELET COUNT (AUTO) 331 K/uL (130-430); RED BLOOD CELL COUNT(AUTO) 3.02 MIL/uL (4.2-6.2); RED CELL DISTRIBUTION WIDTH 13.1 % (9.0-15.0); WHITE BLOOD COUNT (AUTO) 5.5 K/uL (4.8-10.8)
[2018-05-01 07:45] LABS: C-REACTIVE PROTEIN QUANT 6.4 mg/dL (0-0.5); CALCIUM 8.3 mg/dL (8.4-11.0); CREATININE 0.66 mg/dL (0.55-1.30); POTASSIUM 3.8 mmol/L (3.5-5.1)
[2018-05-01 08:00] VITALS: BP_SYST 117
--- NOTE | 2018-05-01 08:00 | NUR ---
initial notes rec patient awake alert with ivl on the r forearm intact. no infiltration noted. resp easy and unlabored.denies pain or dizziness . bed to the lowest position and side rails up and locked. call light within reached and knows when to call for assistance. will continue to monitor patient.
[2018-05-01] MEDS: OXYBUTYNIN CHLORIDE 5 MG TABLET PO SCH ×2 (08:41→20:56)
[2018-05-01] MEDS: metFORMIN HCL 500 MG TABLET PO SCH ×2 (08:41→18:21)
[2018-05-01] MEDS: ASPIRIN 81 MG TAB.CHEW PO SCH (08:41)
[2018-05-01] MEDS: PSYLLIUM HUSK 1 PKT PACKET PO SCH ×3 (08:42→20:56)
[2018-05-01] MEDS: DOCUSATE SODIUM 250 MG CAPSULE PO SCH ×2 (08:42→20:56)
--- NOTE | 2018-05-01 10:00 | NUR ---
rounds up and sitting at bedside. due meds were given and isidoro well. no sob noted. ambulates to the br.
[2018-05-01 11:16] LABS: ERYTHROCYTE SEDIMENTATION RATE 105 MM/HR (0-20)
[2018-05-01 12:00] VITALS: BP_SYST 121
--- NOTE | 2018-05-01 12:20 | NUR ---
rounds acu check was done and no hypo hyperglycemic reaction noted. sons at bedside with the patient. no sob noted.
--- NOTE | 2018-05-01 14:00 | NUR ---
rounds resting comfortably at bedside.no acute distress noted. no osb noted.
--- NOTE | 2018-05-01 16:29 | NUR ---
rounds ambulating on the hallway and isidoro well with hte son. was seen by dr bro .
[2018-05-01 16:43] VITALS: BP_SYST 131
[2018-05-01] MEDS: ERTAPENEM SODIUM 1 GM in NS 50 ML IV SCH (18:22)
--- NOTE | 2018-05-01 18:40 | NUR ---
closing notes no osb noted, sitting at bedside. denies pain.
[2018-05-01 20:00] VITALS: BP_SYST 130
--- NOTE | 2018-05-01 20:00 | NUR ---
INITIAL NOTES: PT IS ALERT AND ORIENTED , NOT IN ANY ACUTE DISTRESS; FAMILY AT BEDSIDE , MAINLY [place] SPEAKING , ABLE TO UNDERSTAND SIMPLE DOMINICAN ; NOTICED PURPLE DISCOLORATION TO THE EFT UPPER ARM , ASSESSMENT DONE ; IV FLUID TO THE R FA NEAR TO WRIST , NO S/S OF ANY INFILTRATION NOTED . BED IN LOW AND LOCK POSITION , CALL CONWAY IN REACH ; BED ALARM IS ON , ENCOURAGED PT TO CALL FOR ASSIST . WILL CONTINUE TO MONITOR PT .
[2018-05-01] MEDS: SIMVASTATIN 20 MG TABLET PO SCH (20:56)
--- NOTE | 2018-05-01 21:00 | NUR ---
MEDICATION; DUE MEDS GIVEN PER ORDER , BS 208 , PER ORDER INSULIN 4 UNITS GIVEN . PROVIDED 1/2 SANDWICH TO THE PT . PT IS COMFORTABLE ; CALL CONWAY IN REACH ; WILL CONTINUE TO MONITOR PT .
--- NOTE | 2018-05-01 22:40 | NUR ---
RN ROUNDS: ASSISTED PT TO THE RESTROOM , PT VOIDED , NOTICED STEADY GAIT , A PRECAUTION ENCOURAGED PT TO CALL FOR ASSIST AND PLACED PT BED ALARM BACK ON .
--- NOTE | 2018-05-02 00:01 | NUR ---
RN NOTES: PT IS SLEEPING , NOT IN ANY ACUTE DISTRESS , RESPIRATION IS EVEN AND NON LABORED . WILL CONTINUE TO MONITOR .
[2018-05-02 00:08] VITALS: BP_SYST 137
--- NOTE | 2018-05-02 02:10 | NUR ---
RN NOTES: PT IS SLEEPING , NOT IN ANY ACUTE DISTRESS , RESPIRATION IS EVEN AND NON LABORED . WILL CONTINUE TO MONITOR .
--- NOTE | 2018-05-02 04:16 | NUR ---
RN NOTES: PT IS SLEEPING , NOT IN ANY ACUTE DISTRESS; RESPIRATION IS EVEN AND NON LABORED ; WILL CONTINUE TO MONITOR PT .
--- NOTE | 2018-05-02 06:40 | NUR ---
RN NOTES: BS WAS 175 , MEDICATIONS INCLUDING INSULIN GIVEN PER ORDER , PROVIDED CRACKERS , REQUESTED DIETARY TO PROVIDE BREAKFAST EARLIER ; PT IS COMFORTABLE ; NOT IN ANY ACUTE DISTRESS; SITTING UP ON CHAIR ; WILL CONTINUE TO MONITOR PT .
[2018-05-02] MEDS: INSULIN ASPART 100 UNITS/ML, 10 ML VIAL (NovoLOG) SUBCUT PRN (06:42)
[2018-05-02] MEDS: NORMAL SALINE 5 ML DISP.SYRIN IVF SCH (06:42)
[2018-05-02 06:51] LABS: BASOPHILS % (AUTO) 0.8 % (0.0-2.0); EOSINOPHILS # (AUTO) 0.3 K/uL (0.0-0.4); EOSINOPHILS % (AUTO) 4.4 % (0.0-4.0); HEMATOCRIT 30.6 % (36-48); HEMOGLOBIN 10.3 g/dL (12.0-16.0); LYMPHOCYTES # (AUTO) 1.6 K/uL (1.0-5.5); LYMPHOCYTES % (AUTO) 27.1 % (20.5-51.5); MEAN CORPUSCULAR HEMOGLOBIN 32 pg (27-31); MEAN CORPUSCULAR HGB CONC 34 % (32-36); MEAN CORPUSCULAR VOLUME 96 fL (79.0-98.0); MONOCYTES # (AUTO) 0.4 K/uL (0.0-1.0); MONOCYTES % (AUTO) 6.3 % (1.7-9.3); NEUTROPHILS # (AUTO) 3.5 K/uL (1.8-7.7); NEUTROPHILS % (AUTO) 61.4 % (40.0-70.0); PLATELET COUNT (AUTO) 430 K/uL (130-430); RED BLOOD CELL COUNT(AUTO) 3.18 MIL/uL (4.2-6.2); RED CELL DISTRIBUTION WIDTH 12.8 % (9.0-15.0); WHITE BLOOD COUNT (AUTO) 5.8 K/uL (4.8-10.8)
--- NOTE | 2018-05-02 07:15 | NUR ---
received report at the bedside. patient is sitting on the chair. watching tv. no sob nor pain noted. will continue to monitor patients status.
--- NOTE | 2018-05-02 07:18 | NUR ---
CLOSING NOTES: PT IS SLEEPING ,NOT IN ANY ACUTE DISTRESS; RESPIRATION IS EVEN AND NON LABORED ; REPORT GIVEN TO RN AT BEDSIDE . ALL NEEDS MET . Addendum: 05/02/18 at 0732 by Adriana Castle RN CORRECTION: PT IS AWAKE
[2018-05-02 07:22] LABS: ALBUMIN 2.4 g/dL (3.4-4.8); C-REACTIVE PROTEIN QUANT 4.6 mg/dL (0-0.5); CALCIUM 8.7 mg/dL (8.4-11.0); CREATININE 0.7 mg/dL (0.55-1.30); PHOSPHORUS 4.1 mg/dL (2.7-4.5); POTASSIUM 4.5 mmol/L (3.5-5.1); TOTAL BILIRUBIN 0.3 mg/dL (0.0-1.0)
--- NOTE | 2018-05-02 07:48 | NUR ---
patient is sitting on the chair, watching tv. no sob nor pain noted. has rt forearm saline lock #22. dry and intact. instructed patient to call for assistance.
[2018-05-02 07:50] VITALS: BP_SYST 128
--- NOTE | 2018-05-02 07:57 | NUR ---
has bruise on the left upper arm due to previous fall at home. offered to have pain medication, she said tolerable at this time. she will be okay.
[2018-05-02 08:06] LABS: ERYTHROCYTE SEDIMENTATION RATE 104 MM/HR (0-20)
[2018-05-02] MEDS: ASPIRIN 81 MG TAB.CHEW PO SCH (08:55)
[2018-05-02] MEDS: PSYLLIUM HUSK 1 PKT PACKET PO SCH (08:55)
[2018-05-02] MEDS: OXYBUTYNIN CHLORIDE 5 MG TABLET PO SCH (08:55)
[2018-05-02] MEDS: metFORMIN HCL 500 MG TABLET PO SCH (08:55)
[2018-05-02] MEDS: DOCUSATE SODIUM 250 MG CAPSULE PO SCH (08:55)
--- NOTE | 2018-05-02 09:00 | NUR ---
due medication given at this time. at the bedside. no pain noted.
--- NOTE | 2018-05-02 10:30 | NUR ---
VERBALIZED WANTS TO SLEEP NOW. NO SLEEP LAST NITE.
[2018-05-02 12:00] VITALS: BP_SYST 126
--- NOTE | 2018-05-02 12:12 | NUR ---
LATEST BS IS 111MG/DL. NO COVERAGE GIVEN. WANTS TO SLEEP MORE. NO SLEEP LAST NITE.
--- NOTE | 2018-05-02 13:00 | NUR ---
DR HAN CAME AND ORDERED TO D/C HOME TODAY. WITH PRESCRIPTION ON THE CHART.
[2018-05-02] MEDS ORDERED: PSYL3.4P5 PO (13:22)
[2018-05-02] MEDS ORDERED: DOCU250C71 PO (13:22)
[2018-05-02] MEDS ORDERED: GLIP5TAB13 PO (13:22)
[2018-05-02] MEDS ORDERED: NITR-85 PO (13:22)
--- NOTE | 2018-05-02 13:30 | NUR ---
FAMILY AT THE BEDSIDE. WILL CONTINUE TO MONITOR PATIENTS STATUS.
--- NOTE | 2018-05-02 14:00 | NUR ---
patient left in stable condition. no headache nor pain. left upper arm still bruise, but not painful. saline lock removed and placed a band aid on it. [facility] id band removed. discharge instruction and prescription x 2 given and explained the medication to the patients and patients son Sanchez. left via wheelchair. and return follow up with the primary doctor in one week.
[2018-05-02 14:29] VITALS: BP_SYST 124
== END 2018-05-02 15:00 | disposition home or self-care (01) | DRG 720 ==
LOC: SED 14:55 → STU 17:00
PROVIDERS: ADMIT Preventive Medicine Preventive Medicine/Occupational Environmental Medicine; ATTEND Preventive Medicine Preventive Medicine/Occupational Environmental Medicine
DX: A41.51 Sepsis due to Escherichia coli [E. coli] (principal); E43 Unspecified severe protein-calorie malnutrition; N17.9 Acute kidney failure, unspecified; S06.6X9A Traumatic subarachnoid hemorrhage with loss of consciousness of unspecified duration, initial encounter; E11.22 Type 2 diabetes mellitus with diabetic chronic kidney disease; E83.51 Hypocalcemia; N12 Tubulo-interstitial nephritis, not specified as acute or chronic; E11.65 Type 2 diabetes mellitus with hyperglycemia; E87.1 Hypo-osmolality and hyponatremia; I12.9 Hypertensive chronic kidney disease with stage 1 through stage 4 chronic kidney disease, or unspecified chronic kidney disease; N18.9 Chronic kidney disease, unspecified; Z16.12 Extended spectrum beta lactamase (ESBL) resistance; D64.9 Anemia, unspecified; B96.20 Unspecified Escherichia coli [E. coli] as the cause of diseases classified elsewhere; Z16.24 Resistance to multiple antibiotics; E78.00 Pure hypercholesterolemia, unspecified; E78.5 Hyperlipidemia, unspecified; E87.6 Hypokalemia; I95.1 Orthostatic hypotension; W19.XXXA Unspecified fall, initial encounter; Y93.89 Activity, other specified; Y92.89 Other specified places as the place of occurrence of the external cause; Y99.8 Other external cause status; Z79.84 Long term (current) use of oral hypoglycemic drugs; Z83.3 Family history of diabetes mellitus; Z90.710 Acquired absence of both cervix and uterus; Z91.14 Patient's other noncompliance with medication regimen; Z68.24 Body mass index [BMI] 24.0-24.9, adult
CPT/HCPCS: 36415; 70450-TC; 71045; 73060-TC; 74018; 76770; 80048; 80053; 80061; 80170-TC; 80307; 81000-TC; 82140-TC; 82962; 83036; 83605; 83735-TC; 83880; 84100-TC; 84439; 84443-TC; 84484; 85025; 85610-TC; 85651-TC; 86140; 87040-TC; 87086; 87186-TC; 93005; 93306; 93880; 95816; 96365; 99285; G0378; G0482; J0696; J1200; J1335; J1580; J1815; J1956; J2270; J2405; J7030